=== PATIENT | male | born 1940 | race Caucasian/White ===

== ENCOUNTER 2017-03-06 09:51 | Inpatient (IN) | payer MEDICARE, OTHER ==
--- NOTE | ~2017-03-06 | DS ---
Discharge Summary [place] [id number] [facility] [place] [address] NAME: LYLY DIXON : 42 STATUS : DIS IN PAT#: [id number] AGE: 76 ADM/REG DATE : 03/07/17 MR#: [id number] REPORT SERV DATE: 03/10/17 DICTATED BY: JR. ESPARZA WILLIAM JOHN DATE: 03/09/17 REPORT STATUS : Draft TRANSCRIBED BY: MODLaquita DATE: 03/09/17 ADMISSION DATE: 03/07/2017 DISCHARGE DATE: 03/09/2017 DISCHARGE DIAGNOSES: 1. Right arm cellulitis after a fire ant bite. 2. Drug eruption from cephalosporins. 3. Non-insulin requiring diabetes mellitus with neuropathy. 4. History of rheumatoid arthritis. 5. History of coronary artery disease. 6. Hypertension. OPERATIONS/PROCEDURES AND TREATMENTS: 1. PA and lateral chest x-ray done 03/06/2017 which showed tortuous aorta and otherwise unremarkable. 2. Venous Doppler ultrasound of the right upper extremity showed normal imaging. 3. Blood cultures x2 done 03/06/2017 were sterile at the time of this dictation. DISCHARGE MEDICATIONS: Include: 1. Norvasc 10 mg orally daily. 2. Aspirin 325 mg orally daily. 3. Benazepril 40 mg orally daily. 4. Vitamin B12 1 mg orally daily. 5. Cholecalciferol 1000 units daily. 6. Folate 400 mcg orally daily. 7. Amaryl 4 mg orally daily. 8. Methotrexate 17.5 mg every week on Monday. 9. Multivitamin tablet orally daily. 10.Metoprolol 50 mg twice a day. 11.Nabumetone 750 mg orally twice a day. 12.Florastor one tablet orally daily. 13.Simvastatin 80 mg orally daily. 14.Metformin 1000 mg orally twice a day. 15.Ibuprofen 400 mg three times a day as needed. 16.Nitroglycerin 0.4 mg sublingually as needed. 17.Tylenol 500 mg orally daily. 18.Levaquin 750 mg orally daily for five days. HOSPITAL COURSE: The patient was a very pleasant 76-year-old male, who was working in the yard a few days prior to presentation when he got bitten by fire ants on both arms, right greater than left. The patient was pushing a wheelbarrow full of yard waste, and apparently, there were fire ants in the yard waste. They crawled up the handles of the wheelbarrow and stung him on the arms. He presented to the emergency room on Monday, was given Rocephin and Keflex and subsequently developed a truncal rash consistent with drug eruption. The arm became more swollen, and he came to the emergency room for further help. On initial exam, his temperature was 98.2, blood pressure 111/56, heart rate 77, and Discharge Summary [address] [place]. [address] NAME: LYLY DIXON : 42 STATUS : DIS IN PAT#: [id number] AGE: 76 ADM/REG DATE : 03/07/17 MR#: [id number] REPORT SERV DATE: 03/10/17 DICTATED BY: JR. ESPARZA WILLIAM JOHN DATE: 03/09/17 REPORT STATUS : Draft TRANSCRIBED BY: ADIN DATE: 03/09/17 respiratory rate 14. His extremity was significant for no peripheral edema in the lower extremity. Right arm was swollen with 2+ pulses were present. There was erythema and swelling of the right upper extremity with "doughy" in nature. Skin also had significant sun damage. His white count was normal. Lactate was 1.1. For complete details, please see Dr. Sheriff's dictated history and physical. The patient was admitted to the Clinical Decision Unit. He was placed on vancomycin and had significant improvement in the cellulitis, although it remained red hot. He had a venous Doppler ultrasound which ruled out clot in the arm. The patient was monitored overnight, and on hospital day #3, he was switched to Levaquin orally with near resolution of the erythema by the time of discharge. He did develop some discoloration of the contralateral arm, but there was no warmth or erythema. It was more of a violaceous color. The patient's drug rash resolved. The remainder of the patient's health problems remained stable and were not addressed during this hospital stay. The patient will be discharged home on five additional days of Levaquin. He will follow up with his primary care provider, Suhail Vaca, in one week. For discharge exam and laboratory, please see daily progress note. DIET: An ADA diet. ACTIVITY: As tolerated. This discharge took 35 minutes for patient encounter, coordination of care, and documentation. CRISTO/ADIN Chiki Esparza Jr, MD / [id number] CC: Chiki Esparza Jr, MD Luther Frank Chandler, M.D.
--- NOTE | ~2017-03-06 | HP ---
History And Physical [address] [id number] [place]. [address] NAME: LYLY DIXON : 42 STATUS : ADM Lizzette PAT#: [id number] AGE: 76 ADM/REG DATE : 03/06/17 MR#: [id number] REPORT SERV DATE: 03/06/17 DICTATED BY: JAMES PULIDO DATE: 03/06/17 REPORT STATUS : Draft TRANSCRIBED BY: MODL DATE: 03/06/17 DATE OF ADMISSION: 03/06/2017 CHIEF COMPLAINT: Right arm swelling and redness along with a rash. HISTORY OF PRESENT ILLNESS: The patient is a very pleasant 76-year-old white male. On Monday, he was out working in the yard and apparently got bite by some fire ants on both arms, right greater than the left. He subsequently developed a red swollen right arm which was increasing in size and he presented to [facility] ER on Monday. Here, he was given a dose of Rocephin and sent home on Keflex. He took one Keflex and then he developed a maculopapular rash involving his trunk which was consistent with a drug rash. He returned today after his arm became even more swollen and red and painful to seek medical care. He has not had any fever. He does not really have any other complaints. He has never had an ant bite in the past. He has had penicillin in the past and thinks he has had a cephalosporin but he is not sure. PAST MEDICAL HISTORY: 1. Cellulitis of the left upper extremity. 2. Type 2 diabetes mellitus. 3. Rheumatoid arthritis. On methotrexate. 4. CAD with history of CABG. 5. Hypertension. 6. Peripheral neuropathy. 7. Hyperlipidemia. 8. Osteoarthritis. 9. DJD. PAST SURGICAL HISTORY: He has had back surgery, a CABG and a debridement of his right lower extremity after he had a wound. ALLERGIES: OXYCODONE, PHENERGAN, AND CODEINE. FAMILY HISTORY: Positive for hypertension, CAD, diabetes mellitus. HOME MEDICATIONS: Reviewed and attached. REVIEW OF SYSTEMS: Full 10-point review of systems obtained. Pertinent positives as mentioned in the HPI. PHYSICAL EXAMINATION: VITAL SIGNS: BP 111/56, sats 100%, temperature 98.2, pulse 77, respiratory rate 14. GENERAL: A well-developed, white male, in no apparent distress. HEENT: Normocephalic, atraumatic. HEART: Regular rate and rhythm. LUNGS: Grossly clear. ABDOMEN: Soft. History And Physical [address] [address] NAME: LYLY DIXON : 42 STATUS : ADM Lizzette PAT#: [id number] AGE: 76 ADM/REG DATE : 03/06/17 MR#: [id number] REPORT SERV DATE: 03/06/17 DICTATED BY: JAMES PULIDO DATE: 03/06/17 REPORT STATUS : Draft TRANSCRIBED BY: ADIN DATE: 03/06/17 EXTREMITIES: Warm and dry. He has no peripheral edema in the lower extremities. His right arm is swollen at 2+. Pulses are 2+ at the feet and at the wrist in both arms. SKIN: He has erythema and swelling of the right upper extremity. It is doughy in nature. His skin is very sun-damaged and darken which makes it difficult to appreciate the erythema. On his left arm, he has some erythema on the inside aspect of his forearm, but this arm is not swollen. He has a maculopapular rash involving his trunk, particularly the sides of his trunk and going down to the tops of his thighs. LABORATORY AND X-RAY DATA: Lactate 1.1. Procalcitonin is normal. Basic metabolic panel and LFTs are normal other than a glucose of 189. CBC is normal. Coags are normal. Chest x-ray shows no acute disease. ASSESSMENT/PLAN: 1. Right arm possible cellulitis, certainly could also be a local reaction secondary to ant bites but given his history of diabetes, immunosuppressant drugs, and RA, we would like to be cautious. He has had blood cultures in the ER. I am going to place him on vancomycin overnight. Certainly, he cannot have a cephalosporin as it looks like he has now got an allergy to cephalosporins. We will keep his arm elevated. We will do a duplex to rule out deep venous thrombosis. We will see how his arm looks tomorrow. We will provide some antihistamines for possible associated local reaction. 2. Drug rash, likely secondary to the cephalosporin he received. We will treat him with some antihistamines and watch him overnight. 3. Diabetes type 2. We will provide level 2 sliding scale in addition to his Amaryl. 4. History of rheumatoid arthritis. On chronic immunosuppressive drugs. 5. Coronary artery disease. Stable. 6. Hypertension. Stable. 7. History of peripheral neuropathy. 8. Deep venous thrombosis prophylaxis. Subcutaneous Lovenox. 9. Disposition. Pending above. RUDDY/ADIN James Pulido M.D. / [id number] CC: Chiki Esparza Jr, MD Luther Frank Chandler, M.D.
[~2017-03-06 09:51] MED LIST: ACET500CAP PO; AMARYL4 PO; ASABAYER PO; AZOR1 TA1 PO; AZOR1 TA3 PO; CENTRUM PO; CENTRUM TAB1 TAB PO; CYANO1000T PO; FOLIC ACID400 MC1 PO; GLUCOPHAGE1000 MG PO; GLYBURIDE; LEVEMFLXPN SC; LOP100 PO; LOP50 PO; LOTE40 PO; MTX2.5 PO; MULTIPLE VIT PO; NABUMETONE750 MG PO; NEBUTONE; NITROSTAT0.4 MG SL; NORCO1 TAB PO; NORV10 PO; PROBIOTIC CAPSULE PO; PROBIOTIC PO; SEPTRA DS1 TAB PO; ULTRAM50 PO; VITAMIN D1000 UNI1 PO; ZOCOR40 PO; ZOCOR80 MG PO; ZOFRAN PO; ZYVOXPO PO; [UNRECOGNIZED DRUG - OTHER]
[2017-03-06 09:53] LABS: BASOPHILS 0.1 %; BASOPHILS ABSOLUTE 0.01 10/3/uL (0.0-0.16); EOSINOPHILS 0.8 %; EOSINOPHILS ABSOLUTE 0.08 10/3/uL (0.0-0.53); HEMOGLOBIN 14.3 g/dL (13.6-17.8); IMMATURE GRANULOCYTES 0.4 %; IMMATURE GRANULOCYTES ABSOLUTE 0.04 10/3/uL (0.0-0.11); LYMPHOCYTES 11.1 %; LYMPHOCYTES ABSOLUTE 1.05 10/3/uL (0.67-4.30); MANUAL DIFF NO %; MEAN CORPUS HGB CONC 35.8 g/dL (32.0-36.0); MEAN CORPUSCULAR HEMOGLOB 34.7 pg (26.0-34.0); MEAN CORPUSCULAR VOLUME 97.1 fL (80-100); MEAN PLATELET VOLUME 9.1 fL (9.2-13.0); MONOCYTES 5.6 %; MONOCYTES ABSOLUTE 0.53 10/3/uL (0.21-1.20); NEUTROPHILS ABSOLUTE 7.77 10/3/uL (2.02-8.40); PLATELET COUNT 171 10/3/uL (150-400); RBC DISTRIBUTION WIDTH 14.3 % (12.0-16.0); RED CELL COUNT 4.12 10/6/uL (4.7-6.1); WHITE BLOOD CELLS 9.5 10/3/uL (4.5-10.5)
[2017-03-06 10:01] LABS: INTERNATIONAL NORMAL RATI 1.2 UNITS (-); PROTIME (NOT ORD) 15.1 SEC (12.0-14.5)
[2017-03-06 10:12] LABS: A/G RATIO 1.1 (0.7-1.9); ALBUMIN 3.5 G/DL (3.5-5.0); ALKALINE PHOSPHATASE 94 U/L (45-117); CALCIUM, SERUM 8.6 MG/DL (8.5-10.4); CHLORIDE, SERUM 106 MMOL/L (96-112); CO2 (CARBON DIOXIDE) 26 MMOL/L (24-34); GLOBULIN 3.2 G/DL (2.5-4.1); POTASSIUM, SERUM 3.8 MMOL/L (3.5-5.3); SGOT(AST) 13 U/L (5-40); SGPT(ALT) 17 U/L (5-65); SODIUM, SERUM 137 MMOL/L (135-148); TOTAL BILIRUBIN 1.1 MG/DL (0-1.2); TOTAL PROTEIN 6.7 G/DL (6.0-8.5)
[2017-03-06 10:13] LABS: BUN (BLOOD UREA NITROGEN) 15 MG/DL (6-23); CREATININE 1.19 MG/DL (0.70-1.30); GFR AFRICAN AMERICAN 69 ML/MIN (>=60); GFR NON AFRICAN AMERICAN 59 ML/MIN (>=60); GLUCOSE, SERUM 182 MG/DL (60-99)
[2017-03-06 10:20] LABS: LACTATE 1.1 MMOL/L (0.3-2.4)
[2017-03-06 10:40] LABS: PROCALCITONIN <0.05 ng/mL (<0.5)
[2017-03-06] MEDS ORDERED: NABUMETONE750 MG PO (10:42)
[2017-03-06] MEDS ORDERED: ADVIL PO (10:43)
[2017-03-06] MEDS ORDERED: ASABAYER PO (10:43)
[2017-03-06] MEDS ORDERED: AMARYL4 PO (10:43)
[2017-03-06] MEDS ORDERED: ZOCOR80 MG PO (10:43)
[2017-03-06] MEDS ORDERED: GLUCOPHAGE1000 MG PO (10:43)
[2017-03-06] MEDS ORDERED: LOTE40 PO (10:44)
[2017-03-06] MEDS ORDERED: NORV10 PO (10:44)
[2017-03-06] MEDS ORDERED: LOP50 PO (10:44)
[2017-03-06] MEDS ORDERED: MTX2.5 PO (10:45)
[2017-03-06] MEDS ORDERED: THERGRANM PO (10:45)
[2017-03-06] MEDS ORDERED: FOLIC ACID400 MC1 PO (10:45)
[2017-03-06] MEDS ORDERED: FLORASTOR250 MG PO (10:46)
[2017-03-06] MEDS ORDERED: VITAMIN D1000 UNI1 PO (10:46)
[2017-03-06] MEDS ORDERED: CYANO1000T PO (10:47)
[2017-03-06] MEDS ORDERED: NITROSTAT0.4 MG SL (10:47)
[2017-03-06] MEDS ORDERED: ACET500CAP PO (10:47)
[2017-03-06 10:54] LABS: SED RATE 10 MM/HR (0-15)
[2017-03-07 05:53] LABS: BASOPHILS 0 %; EOSINOPHILS 0.1 %; EOSINOPHILS ABSOLUTE 0.01 10/3/uL (0.0-0.53); HEMOGLOBIN 11.9 g/dL (13.6-17.8); IMMATURE GRANULOCYTES 0.4 %; IMMATURE GRANULOCYTES ABSOLUTE 0.04 10/3/uL (0.0-0.11); LYMPHOCYTES 8.6 %; LYMPHOCYTES ABSOLUTE 0.88 10/3/uL (0.67-4.30); MEAN CORPUS HGB CONC 35.6 g/dL (32.0-36.0); MEAN CORPUSCULAR VOLUME 95.4 fL (80-100); MEAN PLATELET VOLUME 9.2 fL (9.2-13.0); MONOCYTES 5.7 %; MONOCYTES ABSOLUTE 0.58 10/3/uL (0.21-1.20); NEUTROPHILS 85.2 %; NEUTROPHILS ABSOLUTE 8.68 10/3/uL (2.02-8.40); PLATELET COUNT 149 10/3/uL (150-400); RBC DISTRIBUTION WIDTH 14.6 % (12.0-16.0); WHITE BLOOD CELLS 10.2 10/3/uL (4.5-10.5)
[2017-03-07 05:54] LABS: HEMATOCRIT 33.4 % (40.0-51.0); MANUAL DIFF NO %
[2017-03-07 06:02] LABS: CALCIUM, SERUM 8.6 MG/DL (8.5-10.4); CHLORIDE, SERUM 109 MMOL/L (96-112); CO2 (CARBON DIOXIDE) 23 MMOL/L (24-34); CREATININE 0.77 MG/DL (0.70-1.30); GFR AFRICAN AMERICAN 103 ML/MIN (>=60); GFR NON AFRICAN AMERICAN 89 ML/MIN (>=60); GLUCOSE, SERUM 175 MG/DL (60-99); SODIUM, SERUM 140 MMOL/L (135-148)
[2017-03-07 06:03] LABS: BUN (BLOOD UREA NITROGEN) 20 MG/DL (6-23)
[2017-03-08 06:25] LABS: BASOPHILS 0.3 %; BASOPHILS ABSOLUTE 0.02 10/3/uL (0.0-0.16); EOSINOPHILS 3.8 %; EOSINOPHILS ABSOLUTE 0.28 10/3/uL (0.0-0.53); HEMATOCRIT 32.7 % (40.0-51.0); HEMOGLOBIN 11.5 g/dL (13.6-17.8); IMMATURE GRANULOCYTES 0.1 %; IMMATURE GRANULOCYTES ABSOLUTE 0.01 10/3/uL (0.0-0.11); LYMPHOCYTES 20.6 %; LYMPHOCYTES ABSOLUTE 1.53 10/3/uL (0.67-4.30); MANUAL DIFF NO %; MEAN CORPUS HGB CONC 35.2 g/dL (32.0-36.0); MEAN CORPUSCULAR HEMOGLOB 34.3 pg (26.0-34.0); MEAN CORPUSCULAR VOLUME 97.6 fL (80-100); MEAN PLATELET VOLUME 9.5 fL (9.2-13.0); MONOCYTES 7.1 %; MONOCYTES ABSOLUTE 0.53 10/3/uL (0.21-1.20); NEUTROPHILS 68.1 %; NEUTROPHILS ABSOLUTE 5.05 10/3/uL (2.02-8.40); PLATELET COUNT 175 10/3/uL (150-400); RBC DISTRIBUTION WIDTH 14.6 % (12.0-16.0); RED CELL COUNT 3.35 10/6/uL (4.7-6.1); WHITE BLOOD CELLS 7.4 10/3/uL (4.5-10.5)
[2017-03-08 06:29] LABS: BUN (BLOOD UREA NITROGEN) 20 MG/DL (6-23); CALCIUM, SERUM 8.4 MG/DL (8.5-10.4); CHLORIDE, SERUM 108 MMOL/L (96-112); CO2 (CARBON DIOXIDE) 24 MMOL/L (24-34); CREATININE 0.72 MG/DL (0.70-1.30); GFR AFRICAN AMERICAN 106 ML/MIN (>=60); GFR NON AFRICAN AMERICAN 91 ML/MIN (>=60); GLUCOSE, SERUM 178 MG/DL (60-99); POTASSIUM, SERUM 4.2 MMOL/L (3.5-5.3); SODIUM, SERUM 140 MMOL/L (135-148)
[2017-03-08 07:04] LABS: PROCALCITONIN <0.05 ng/mL (<0.5)
[2017-03-09] MEDS ORDERED: LEVAQUIN750 MG PO (09:52)
== END 2017-03-09 10:46 | disposition home or self-care (01) | DRG 603 ==
LOC: ER 09:51 → CDU1 11:00 → 5SO 03-07 19:41
PROVIDERS: Internal Medicine; Nurse Practitioner Family
DX: L03.113 Cellulitis of right upper limb (principal); E11.42 Type 2 diabetes mellitus with diabetic polyneuropathy; M06.9 Rheumatoid arthritis, unspecified; L03.114 Cellulitis of left upper limb; S40.862A Insect bite (nonvenomous) of left upper arm, initial encounter; S40.861A Insect bite (nonvenomous) of right upper arm, initial encounter; Z79.899 Other long term (current) drug therapy; I25.10 Atherosclerotic heart disease of native coronary artery without angina pectoris; Z95.1 Presence of aortocoronary bypass graft; I10 Essential (primary) hypertension; E78.5 Hyperlipidemia, unspecified; M19.90 Unspecified osteoarthritis, unspecified site; Z98.890 Other specified postprocedural states; Z88.5 Allergy status to narcotic agent; Z88.8 Allergy status to other drugs, medicaments and biological substances; Z82.49 Family history of ischemic heart disease and other diseases of the circulatory system; Z83.3 Family history of diabetes mellitus; L27.0 Generalized skin eruption due to drugs and medicaments taken internally; I25.2 Old myocardial infarction; Z79.82 Long term (current) use of aspirin; Z79.84 Long term (current) use of oral hypoglycemic drugs; W57.XXXA Bitten or stung by nonvenomous insect and other nonvenomous arthropods, initial encounter
CPT/HCPCS: 71020; 80048; 80053; 81001; 82962; 83605; 84145; 85025; 85610; 85652; 85730; 87040; 93005; 93971; 96374; 96375; 99283; 99285; A9270-GY; J1200; J2930; J3370; J8610